=== PATIENT | male | born 1945 | race Caucasian/White ===

== ENCOUNTER 2016-07-25 08:00 | Day surgery (SDC) | payer OTHER ==
[2016-07-24 14:31] LABS: BASOPHILS 0.4 %; BASOPHILS ABSOLUTE 0.02 10/3/uL (0.0-0.16); EOSINOPHILS ABSOLUTE 0.11 10/3/uL (0.0-0.53); HEMOGLOBIN 15.9 g/dL (13.6-17.8); IMMATURE GRANULOCYTES 0.2 %; IMMATURE GRANULOCYTES ABSOLUTE 0.01 10/3/uL (0.0-0.11); LYMPHOCYTES 34.4 %; LYMPHOCYTES ABSOLUTE 1.86 10/3/uL (0.67-4.30); MEAN CORPUS HGB CONC 32.9 g/dL (32.0-36.0); MEAN CORPUSCULAR HEMOGLOB 30.3 pg (26.0-34.0); MEAN CORPUSCULAR VOLUME 92.2 fL (80-100); MEAN PLATELET VOLUME 10.7 fL (9.2-13.0); MONOCYTES 7.8 %; MONOCYTES ABSOLUTE 0.42 10/3/uL (0.21-1.20); NEUTROPHILS 55.2 %; NEUTROPHILS ABSOLUTE 2.99 10/3/uL (2.02-8.40); PLATELET COUNT 193 10/3/uL (150-400); RBC DISTRIBUTION WIDTH 13.5 % (12.0-16.0); RED CELL COUNT 5.25 10/6/uL (4.7-6.1); WHITE BLOOD CELLS 5.4 10/3/uL (4.5-10.5)
[2016-07-24 14:32] LABS: HEMATOCRIT 48.4 % (40.0-51.0); MANUAL DIFF NO %
[2016-07-24 14:45] LABS: CALCIUM, SERUM 8.9 MG/DL (8.5-10.4); CHLORIDE, SERUM 108 MMOL/L (96-112); CO2 (CARBON DIOXIDE) 27 MMOL/L (24-34); CREATININE 1.06 MG/DL (0.70-1.30); GFR AFRICAN AMERICAN 83 ML/MIN (>=60); GFR NON AFRICAN AMERICAN 72 ML/MIN (>=60); GLUCOSE, SERUM 93 MG/DL (60-99); INTERNATIONAL NORMAL RATI 1.1 UNITS (-); PARTIAL THROMBO TIME 30.2 SEC (22.5-37.2); PROTIME (NOT ORD) 14.5 SEC (12.0-14.5); SODIUM, SERUM 144 MMOL/L (135-148)
[2016-07-24 14:47] LABS: BUN (BLOOD UREA NITROGEN) 21 MG/DL (6-23); POTASSIUM, SERUM 5.4 MMOL/L (3.5-5.3)
--- NOTE | ~2016-07-25 | OP ---
Record Of Operation [facility] [address] [place]. [address] NAME: HANANE BENSON : 49 STATUS : [facility]#: [id number] AGE: 70 ADM/REG DATE : 07/25/16 MR#: [id number] REPORT SERV DATE: 07/26/16 DICTATED BY: LAURO CLAY DATE: 07/26/16 REPORT STATUS : Draft TRANSCRIBED BY: MODAlmaz DATE: 07/26/16 DATE OF PROCEDURE: 07/25/2016 PREOPERATIVE DIAGNOSIS: Lentigo maligna, melanoma in situ, left cheek. POSTOPERATIVE DIAGNOSIS: Lentigo maligna, melanoma in situ, left cheek. OPERATIVE PROCEDURE PERFORMED: 1. Wide local excision of left cheek melanoma, 4 cm. 2. Advancement flap closure with cervicofacial advancement flap greater than 30 square cm in size. INDICATIONS AND SIGNIFICANT HISTORY: The patient is a 70-year-old male with a longstanding pigmented lesion on left anterior cheek. This has been biopsied on couple of occasions by his primary care physician and initial biopsy proved benign. However, upon subsequent evaluations, he had biopsy that was worrisome for melanoma in situ. He was felt to benefit from surgical excision of this lesion and was scheduled for such. OPERATIVE PROCEDURE AND FINDINGS: After informed consent was obtained, the patient was brought to the operating room and placed on the operating table in the supine position, at which point general endotracheal anesthesia was induced by Anesthesia Service and the left facial lesion was marked with approximately a 5 mm margin surrounding it. Also marked were the likely planned cervicofacial advancement flap incisions. The patient's face was then prepped and draped in standard sterile fashion after being injected with approximately 9 mL of 2% lidocaine and 1:100,000 epinephrine. A 15-blade scalpel was then used to make a circumferential excision of the melanotic lesion and resulted in a 4 to 4.5 cm defect. This was a circular defect on the anterior prominent portion of the malar cheek. At this point, specimen was stitched at 12 o'clock and attention was turned toward the wound. A cervicofacial advancement flap was planned. This was felt to be the best covered to provide minimal distortion to the lower eyelid as well as provide cosmesis and functional closure. A preauricular incision was made in the premarked area and skin flap was elevated using a Metzenbaum scissor and tunneling technique. This incision was then carried up into the anterior cheek and below the left eye. A small triangle of redundant skin was then excised inferiorly within the primary defect to allow for rotational closure and no blanching of the wound. Once the skin flap was elevated, it rested nearly without tension in its position in the anterior cheek. This was then tacked into position using 4-0 Vicryl suture followed by closure of the actual skin with a running locking 4-0 plain gut suture. The patient was then turned back towards anesthesia, aroused from anesthesia, and taken to the postanesthesia care unit in satisfactory condition. COMPLICATIONS: None. ESTIMATED BLOOD LOSS: Less than 10 mL. IV FLUIDS: Per anesthesia. Record Of Operation [address] [address] NAME: HANANE BENSON : 49 STATUS : [facility] PAT#: [id number] AGE: 70 ADM/REG DATE : 07/25/16 MR#: [id number] REPORT SERV DATE: 07/26/16 DICTATED BY: LAURO CLAY DATE: 07/26/16 REPORT STATUS : Draft TRANSCRIBED BY: WILL DATE: 07/26/16 DLGaviota/WILL Lauro Clay M.D. / [id number] CC: Myke Yates M.D.
[~2016-07-25 08:00] MED LIST: MIRAPEX1.5 MG PO; PRIN20 PO; SIN25 PO; XALAT OPH; ZOCOR40 PO
== END 2016-07-25 14:43 | disposition home or self-care (01) ==
LOC: SDC 08:00
PROVIDERS: Otolaryngology
PROC: 0HX1XZZ Transfer Face Skin, External Approach (ICD-10-PCS; principal; 2016-07-25 10:30)
DX: D03.39 Melanoma in situ of other parts of face (principal); I10 Essential (primary) hypertension; E78.00 Pure hypercholesterolemia, unspecified; G20 Parkinson's disease; M19.079 Primary osteoarthritis, unspecified ankle and foot; Z79.899 Other long term (current) drug therapy; Z87.891 Personal history of nicotine dependence; Z90.89 Acquired absence of other organs; Z98.890 Other specified postprocedural states
CPT/HCPCS: 36415; 80048; 85025; 85610; 85730; 88305; 88341; 88342; 93005; A9270-GY; J2250; J2405; J3010